=== PATIENT | male | born 1990 | race African-American/Black ===

== ENCOUNTER 2018-11-10 16:58 | Outpatient (CLI) | payer OTHER ==
[2018-11-10 17:48] LABS: BASOPHILS % 0.4 (0.0-1.5); EOSINOPHILS % 2.8 % (0.0-6.8); MEAN CORPUSCULAR HEMOGLOBIN 30.8 pg (28.0-34.0); MONOCYTES % 5.6 % (0.0-11.0); NEUTROPHILS # 3.3 # k/uL (1.4-7.7)
[2018-11-10 17:51] LABS: eGFR (Non-African) > 60
== END 2018-11-10 17:05 ==
LOC: LAB 16:58
PROVIDERS: ATTEND General Practice
DX: R07.9 Chest pain, unspecified (principal)
CPT/HCPCS: 36415; 80053; 85025